=== PATIENT | male | born 1990 | race Caucasian/White ===

== ENCOUNTER 2017-08-08 17:19 | Emergency (ER) | payer BC, MEDICAID ==
--- NOTE | 2017-08-08 22:27 | ED ---
Laceration/Wound HPI - HPI Summary HPI Summary: Complains too small laceration in distal right thigh from metal blade. Denies any other symptoms or injury. Bleeding controlled. Patient ambulatory. Denies loss of sensation or function in right lower extremity. - History of Current Complaint Stated Complaint: RT LEG LAC Time Seen by Provider: 08/08/17 20:37 Hx Obtained From: Patient Mechanism of Injury: Sharp/Blunt Trauma Aggravating: Movement Current Severity: None Pain Intensity: 0 Associated Signs & Symptoms: Negative - Allergy/Home Medications Allergies/Adverse Reactions: Allergies Allergy/AdvReac Type Severity Reaction Status Date / Time No Known Allergies Allergy Verified 08/08/17 17:39 Home Medications: Home Medications NK [No Home Medications Reported] 08/08/17 [History Confirmed 08/08/17] PMH/Surg Hx/FS Hx/Imm Hx Endocrine/Hematology History: Denies: Hx Anticoagulant Therapy Cardiovascular History: Denies: Hx Cardiac Arrest Respiratory History: Denies: Hx Lung Cancer History: Denies: Hx Dialysis Sensory History: Denies: Hx Glaucoma EENT History: Denies: Hx Deafness Neurological History: Denies: Hx CVA - Immunization History Date of Tetanus Vaccine: 2007 Infectious Disease History: No Infectious Disease History: Denies: Traveled Outside the [place] in Last 30 Days - Social History Alcohol Use: None Substance Use Type: Reports: None Smoking Status (MU): Former Smoker Review of Systems Constitutional: Negative Eyes: Negative ENT: Negative Cardiovascular: Negative Respiratory: Negative Gastrointestinal: Negative Genitourinary: Negative Musculoskeletal: Negative Skin: Negative Neurological: Negative Psychological: Normal All Other Systems Reviewed And Are Negative: Yes Physical Exam - Summary Physical Exam Summary: 3 cm laceration distal right anterior thigh. PMS intact distally with full range of motion right knee and right ankle with no indication of pain. No erythema, deformity, ecchymosis, extra warmth noted to right knee. No Triage Information Reviewed: Yes Vital Signs On Initial Exam: Initial Vitals Temp Pulse Resp BP Pulse Ox 99.9 F 114 13 116/74 97 08/08/17 17:36 08/08/17 17:36 08/08/17 17:36 08/08/17 17:36 08/08/17 17:36 Vital Signs Reviewed: Yes Appearance: Positive: Well-Appearing Skin: Positive: Warm Head/Face: Positive: Normal Head/Face Inspection Eyes: Positive: Normal Neck: Positive: Supple Respiratory/Lung Sounds: Positive: Clear to Auscultation Cardiovascular: Positive: Normal Abdomen Description: Positive: Nontender Musculoskeletal: Positive: Normal Neurological: Positive: Normal Psychiatric: Positive: Normal AVPU Assessment: Alert - [place] Coma Scale Best Eye Response: 4 - Spontaneous Best Motor Response: 6 - Obeys Commands Best Verbal Response: 5 - Oriented Coma Scale Total: 15 Procedures - Laceration/Wound Repair 1 Location: lower extremity Description: Linear Anesthesia: Local Length, Depth and Shape: 3cmx 1cm Betadine Prep?: Yes Irrigated w/ Saline (ccs): 30 - saline plus Hibiclens Laceration/Wound Explored: clean Debridement: minimal Suture Type: Prolene Number of Sutures: 4 - 4.0 Layer Closure?: No Diagnostics - Vital Signs Vital Signs Temp Pulse Resp BP Pulse Ox 08/08/17 17:36 99.9 F 114 13 116/74 97 - Laboratory Lab Statement: Any lab studies that have been ordered have been reviewed, and results considered in the medical decision making process. Laceration Repair Course/Dx - Course Course Of Treatment: Patient refused tetanus shot and antibiotics. Patient was strongly advised to get the tetanus shot and antibiotics. Risks were explained to him. Patient still refused - Clinical Impression Provider Diagnoses: Laceration Discharge - Sign-Out/Discharge Documenting (check all that apply): Discharge/Admit/Transfer - Discharge Plan Condition: Stable Disposition: HOME Patient Education Materials: Care For Your Stitches (ED), Laceration (ED) Referrals: No Primary Care Phys,NOPCP [Primary Care Provider] - Additional Instructions: Sutures out in 10 days. May wash with warm running water and soap. Do not submerge underwater as in swimming for 2 days. Return to the ED for any new or worsening symptoms - Billing Disposition and Condition Condition: STABLE Disposition: Home
[2017-08-08 22:46] VITALS: BP 122/68
== END 2017-08-08 22:46 | disposition home or self-care (01) ==
LOC: ED 17:19
DX: S71.111A Laceration without foreign body, right thigh, initial encounter (principal); W45.8XXA Other foreign body or object entering through skin, initial encounter
CPT/HCPCS: 12002; 99283